=== PATIENT | male | born 1950 | race Asian ===

== ENCOUNTER 2021-08-12 09:41 | Inpatient (IN) | payer MEDICARE ==
[~2021-08-12] VITALS: Ht 162.6 cm; Wt 74.0 kg
--- NOTE | 2021-08-12 10:18 | NUR ---
PT TO ROOM FROM LOBBY. NAD.
--- NOTE | 2021-08-12 10:30 | NUR ---
CONTACT WITH PT, IV STARTED. PT ON MONITOR, RAPID AFIB PER MONITOR, PCXR COMPLETED. 70 YR OLD MALE HERE WITH C/O "TIRED, HARD TO BREATH" HAD BLOOD WORK AND COVID TESTING YESTERDAY AT [facility].
[2021-08-12] MEDS ORDERED: METF500T27 PO (10:51)
[2021-08-12] MEDS ORDERED: ROSU5TAB PO (10:51)
[2021-08-12] MEDS ORDERED: APIX5TAB PO (10:51)
[2021-08-12] MEDS ORDERED: LISI-170 PO (10:51)
[2021-08-12] MEDS ORDERED: METO25TA35 PO (10:51)
[2021-08-12 10:57] LABS: BASOPHILS % (AUTO) 0 % (0-1); EOSINOPHILS % (AUTO) 1 % (1-7); LYMPHOCYTES % (AUTO) 17 % (22-44); MEAN CORPUSCULAR HEMOGLOBIN 36.2 pg (27.5-34.5); MEAN CORPUSCULAR HGB CONC 33.9 g/dL (33.2-36.2); MEAN PLATELET VOLUME 8.7 fL (7.4-10.4); MONOCYTES % (AUTO) 10 % (2-9); NEUTROPHILS % (AUTO) 72 % (42-75); PLATELET COUNT 173 x10^3/uL (130-400); RED BLOOD COUNT 4.19 x10^6/uL (4.38-5.82); RED CELL DISTRIBUTION WIDTH 13.2 % (9.4-14.8)
[2021-08-12] MEDS ORDERED: SODIUM CHLORIDE 0.9% 1,000ML IVBOLUS ONE (11:00)
--- NOTE | 2021-08-12 11:01 | NUR ---
DR YANG AT BEDSIDE TO EVAL PT. NS BOLUS STARTED.
[2021-08-12 11:02] LABS: ALANINE AMINOTRANSFERASE 49 U/L (12-78); ALBUMIN 3.2 g/dL (3.4-5.0); ANION GAP 12 mmol/L (5-15); CALCIUM 8.8 mg/dL (8.5-10.1); CHLORIDE 97 mmol/L (98-107); CREATININE 0.87 mg/dL (0.7-1.3)
[2021-08-12 11:06] LABS: ALKALINE PHOSPHATASE 66 U/L (45-117); BILIRUBIN,TOTAL 1.1 mg/dL (0.2-1.0); TOTAL PROTEIN 7.5 g/dL (6.4-8.2); TROPONIN I < 0.015 ng/mL (0.000-0.045)
[2021-08-12] MEDS ORDERED: DILTIAZEM 125 MG in SODIUM CHLORIDE 0.9% 100 ML IV SCH (11:30)
[2021-08-12] MEDS ORDERED: DILTIAZEM 5 MG/ML, 5ML IV ONE (11:30)
[2021-08-12] MEDS ORDERED: CEFTRIAXONE 1,000 MG in DEXTROSE 5% 50 ML IVPB ONE (11:30)
--- NOTE | 2021-08-12 11:30 | NUR ---
[facility] GTT REQUESTED FROM PHARMACY
[2021-08-12] MEDS ORDERED: DILTIAZEM 5 MG/ML, 5ML ONE (11:33)
--- NOTE | 2021-08-12 11:37 | NUR ---
PT CONT TO DENY CP, "JUST HARD TO BREATH AND SOB" AFIB PER MONITOR. PT MEDICATED WITH CARDIZEM ORDERED. PT PROVIDED WITH WARM BLANKET. NS BOLUS CONT TO INFUSE WITHOUT REDNESS/SWELLING. NO OTHER NEEDS EXPRESSEDA AT THIS TIME.
--- NOTE | 2021-08-12 12:09 | NUR ---
2ND IV LINE STARTED. ONE SET OF BLOOD CULTURES DRAWN. CARDIZEM INFUSING ORDERED. HAZARDOUS WASTE REMOVER AT BEDSIDE FOR ADDITIONAL BLOOD DRAW.
[2021-08-12] MEDS ORDERED: ONDANSETRON ODT 4 MG PO PRN (13:30)
[2021-08-12] MEDS ORDERED: ACETAMINOPHEN 325 MG TABLET PO PRN (13:30)
[2021-08-12] MEDS ORDERED: OXYcodone IR 5MG TABLET PO PRN (13:30)
[2021-08-12] MEDS ORDERED: POLYETHYLENE GLYCOL 17 GM PACKET PO PRN (13:30)
[2021-08-12] MEDS ORDERED: BISACODYL 10 MG SUPP PR PRN (13:30)
[2021-08-12] MEDS ORDERED: ONDANSETRON 2MG/ML, 2ML IVPush PRN (13:30)
[2021-08-12] MEDS ORDERED: morphine SULFATE 10 MG/ML, 1ML IVPush PRN (13:30)
[2021-08-12] MEDS ORDERED: DOCUSATE 100 MG CAPSULE PO PRN (13:30)
[2021-08-12] MEDS ORDERED: hydrALAzine 20 MG/ML, 1ML IVPush PRN (13:30)
[2021-08-12] MEDS ORDERED: PROMETHAZINE 25 MG/ML, 1ML IM PRN (13:30)
--- NOTE | 2021-08-12 14:06 | NUR ---
PT CONT TO "FEEL BETTER" DECREASED SOB. AFIB PER MONITOR. CARDIZEM INFUSING AT 10MG/HR PER ORDER. PT WITH PO FLUIDS AND URINAL AT BEDSIDE. AWARE OF WAITING FOR ROOM ASSIGNMENT. NO OTHER NEEDS EXPRESSED AT THIS TIME.
--- NOTE | 2021-08-12 16:03 | NUR ---
REPORT CALLED TO MINESH PATTON. POC DISCUSSED. IV CARDIZEM CONT TO INFUSE WITHOUT REDNESS/SWELLING. PT UPDATED ON POC.
[2021-08-12] MEDS: SODIUM CHLORIDE 0.9% 1,000 ML IV SCH ×2 (16:25→22:37)
[2021-08-12 16:37] VITALS: BP 142/90
[2021-08-12] MEDS: AZITHROMYCIN 500 MG in SODIUM CHLORIDE 0.9% 250 ML IV SCH (17:55)
[2021-08-12] MEDS: INSULIN LISPRO 100 UNITS/ML, PEN SQ-INSULIN SCH ×2 (17:56→21:08)
[2021-08-12] MEDS: metFORMIN 500 MG TABLET PO SCH (18:01)
[2021-08-12] MEDS ORDERED: GUAIFENESIN 200 MG TABLET PO PRN (19:00)
[2021-08-12] MEDS ORDERED: GUAIFENESIN 100 MG/5 ML, 5ML UDC GT PRN (19:30)
[2021-08-12 20:19] VITALS: BP 122/81
[2021-08-12] MEDS: GUAIFENESIN 100 MG/5 ML, 10ML UDC PO PRN (21:08)
[2021-08-12] MEDS: ATORVASTATIN 20 MG TABLET PO SCH (21:09)
[2021-08-12] MEDS: APIXABAN 5 MG TABLET PO SCH (21:09)
[2021-08-12] MEDS: METOPROLOL TARTRATE 25 MG TAB PO SCH (21:09)
[2021-08-13 02:06] VITALS: BP 124/85
[2021-08-13] MEDS: GUAIFENESIN 100 MG/5 ML, 10ML UDC PO PRN ×3 (03:45→18:11)
[2021-08-13 05:53] LABS: BASOPHILS % (AUTO) 0 % (0-1); EOSINOPHILS % (AUTO) 2 % (1-7); LYMPHOCYTES % (AUTO) 28 % (22-44); MEAN CORPUSCULAR HEMOGLOBIN 36.5 pg (27.5-34.5); MEAN CORPUSCULAR HGB CONC 34.4 g/dL (33.2-36.2); MEAN PLATELET VOLUME 8.5 fL (7.4-10.4); MONOCYTES % (AUTO) 12 % (2-9); NEUTROPHILS % (AUTO) 58 % (42-75); PLATELET COUNT 160 x10^3/uL (130-400); RED BLOOD COUNT 3.77 x10^6/uL (4.38-5.82)
[2021-08-13 05:56] LABS: ALBUMIN 2.8 g/dL (3.4-5.0); ANION GAP 11 mmol/L (5-15); CALCIUM 8.1 mg/dL (8.5-10.1); CHLORIDE 102 mmol/L (98-107)
[2021-08-13 06:05] LABS: ALANINE AMINOTRANSFERASE 40 U/L (12-78); ALKALINE PHOSPHATASE 51 U/L (45-117); CHOL/HDL RATIO 2.8; CHOLESTEROL, TOTAL 99 mg/dL (140-239); CREATININE 0.58 mg/dL (0.7-1.3); HDL CHOL % 36 % (26-37); HDL CHOLESTEROL (DIRECT) 36 mg/dL (40-60); LDL CHOLESTEROL,CALCULATED 43 mg/dL (54-169); LDL/HDL RATIO 1.2 (0.5-3.0); TOTAL PROTEIN 6.6 g/dL (6.4-8.2); TRIGLYCERIDES 99 mg/dL (50-200); VLDL CHOLESTEROL 20 mg/dL (0-25)
[2021-08-13] MEDS: APIXABAN 5 MG TABLET PO SCH ×2 (08:31→21:28)
[2021-08-13] MEDS: metFORMIN 500 MG TABLET PO SCH ×2 (08:31→17:07)
[2021-08-13] MEDS: METOPROLOL TARTRATE 25 MG TAB PO SCH ×2 (08:31→21:28)
[2021-08-13] MEDS: INSULIN LISPRO 100 UNITS/ML, PEN SQ-INSULIN SCH ×4 (08:33→21:00)
[2021-08-13 09:08] VITALS: BP 128/82
[2021-08-13] MEDS ORDERED: MAGNESIUM SULFATE PMX 4GM/100M 100 ML IVPB ONE (10:00)
[2021-08-13] MEDS ORDERED: DILTIAZEM 125 MG in SODIUM CHLORIDE 0.9% 100 ML IV SCH ×2 (10:00→11:30)
[2021-08-13 13:05] VITALS: BP 123/83
[2021-08-13] MEDS: CEFTRIAXONE 2 GM in DEXTROSE 5% 50 ML IVPB SCH (15:01)
[2021-08-13] MEDS: AZITHROMYCIN 500 MG in SODIUM CHLORIDE 0.9% 250 ML IV SCH (18:11)
[2021-08-13] MEDS: DILTIAZEM 125 MG in SODIUM CHLORIDE 0.9% 100 ML IV SCH (18:22)
[2021-08-13] MEDS ORDERED: DILTIAZEM 5 MG/ML, 5ML ONE (18:36)
[2021-08-13] MEDS ORDERED: DILTIAZEM 5 MG/ML, 5ML IVPush ONE (19:30)
[2021-08-13 21:21] VITALS: BP 135/76
[2021-08-13] MEDS: ATORVASTATIN 20 MG TABLET PO SCH (21:28)
[2021-08-14] MEDS: DILTIAZEM 125 MG in SODIUM CHLORIDE 0.9% 100 ML IV SCH (03:28)
[2021-08-14] MEDS: GUAIFENESIN 100 MG/5 ML, 10ML UDC PO PRN ×2 (03:28→09:43)
[2021-08-14 03:33] VITALS: BP 124/82
[2021-08-14 05:56] LABS: CALCIUM 7.9 mg/dL (8.5-10.1); CHLORIDE 102 mmol/L (98-107)
[2021-08-14 06:00] LABS: ANION GAP 9 mmol/L (5-15); CREATININE 0.61 mg/dL (0.7-1.3)
[2021-08-14 08:29] VITALS: BP 123/60
[2021-08-14] MEDS: APIXABAN 5 MG TABLET PO SCH ×2 (08:52→20:52)
[2021-08-14] MEDS: INSULIN LISPRO 100 UNITS/ML, PEN SQ-INSULIN SCH ×4 (08:52→21:02)
[2021-08-14] MEDS: METOPROLOL TARTRATE 25 MG TAB PO SCH ×2 (08:52→20:52)
[2021-08-14] MEDS: metFORMIN 500 MG TABLET PO SCH ×2 (08:52→18:03)
[2021-08-14] MEDS ORDERED: MAGNESIUM SULFATE PMX 4GM/100M 100 ML IVPB ONE (09:00)
[2021-08-14 14:20] VITALS: BP 130/76
[2021-08-14] MEDS: CEFTRIAXONE 2 GM in DEXTROSE 5% 50 ML IVPB SCH (15:29)
[2021-08-14] MEDS: AZITHROMYCIN 500 MG in SODIUM CHLORIDE 0.9% 250 ML IV SCH (18:04)
[2021-08-14] MEDS ORDERED: DILTIAZEM 125 MG in SODIUM CHLORIDE 0.9% 100 ML IV SCH (18:30)
[2021-08-14 20:46] VITALS: BP 139/87
[2021-08-14] MEDS: ATORVASTATIN 20 MG TABLET PO SCH (20:52)
[2021-08-14 23:59] VITALS: BP 138/81
[2021-08-15 09:15] VITALS: BP 133/81
[2021-08-15 09:27] LABS: ANION GAP 11 mmol/L (5-15); CALCIUM 8.2 mg/dL (8.5-10.1); CHLORIDE 102 mmol/L (98-107); CREATININE 0.52 mg/dL (0.7-1.3)
[2021-08-15] MEDS: INSULIN LISPRO 100 UNITS/ML, PEN SQ-INSULIN SCH ×4 (09:27→20:10)
[2021-08-15 10:44] VITALS: BP 139/76
[2021-08-15] MEDS: metFORMIN 500 MG TABLET PO SCH ×2 (10:45→16:43)
[2021-08-15] MEDS: APIXABAN 5 MG TABLET PO SCH ×2 (10:45→20:08)
[2021-08-15] MEDS: METOPROLOL TARTRATE 25 MG TAB PO SCH ×2 (10:45→20:08)
[2021-08-15] MEDS: DILTIAZEM 30 MG TABLET PO SCH ×3 (10:45→20:08)
[2021-08-15] MEDS: GUAIFENESIN 100 MG/5 ML, 10ML UDC PO PRN ×2 (10:52→18:06)
[2021-08-15] MEDS ORDERED: CEFD300C37 PO (12:55)
[2021-08-15] MEDS ORDERED: AZIT500T PO (12:55)
[2021-08-15] MEDS ORDERED: DILT180C53 PO (12:55)
[2021-08-15 13:00] VITALS: BP 138/80
[2021-08-15] MEDS ORDERED: MAGNESIUM SULFATE PMX 2GM/50ML 50 ML IV ONE (13:00)
[2021-08-15] MEDS: CEFTRIAXONE 2 GM in DEXTROSE 5% 50 ML IVPB SCH (15:30)
[2021-08-15 16:41] VITALS: BP 119/76
[2021-08-15] MEDS: AZITHROMYCIN 500 MG in SODIUM CHLORIDE 0.9% 250 ML IV SCH (18:06)
[2021-08-15 19:56] VITALS: BP 136/72
[2021-08-15] MEDS: ATORVASTATIN 20 MG TABLET PO SCH (20:07)
[2021-08-16] MEDS: GUAIFENESIN 100 MG/5 ML, 10ML UDC PO PRN ×2 (00:14→06:20)
[2021-08-16 01:55] VITALS: BP 133/87
[2021-08-16 03:15] VITALS: BP 116/66
[2021-08-16] MEDS: DILTIAZEM 30 MG TABLET PO SCH ×2 (03:19→07:54)
[2021-08-16 06:04] LABS: BASOPHILS % (AUTO) 1 % (0-1); EOSINOPHILS % (AUTO) 3 % (1-7); LYMPHOCYTES % (AUTO) 34 % (22-44); MEAN CORPUSCULAR HEMOGLOBIN 35.8 pg (27.5-34.5); MEAN PLATELET VOLUME 8.3 fL (7.4-10.4); MONOCYTES % (AUTO) 12 % (2-9); NEUTROPHILS % (AUTO) 51 % (42-75); PLATELET COUNT 230 x10^3/uL (130-400); RED BLOOD COUNT 4.04 x10^6/uL (4.38-5.82); RED CELL DISTRIBUTION WIDTH 12.6 % (9.4-14.8)
[2021-08-16 06:07] LABS: CHLORIDE 101 mmol/L (98-107)
[2021-08-16 06:15] LABS: ANION GAP 8 mmol/L (5-15); CALCIUM 8.5 mg/dL (8.5-10.1); CREATININE 0.61 mg/dL (0.7-1.3)
[2021-08-16] MEDS: INSULIN LISPRO 100 UNITS/ML, PEN SQ-INSULIN SCH ×2 (07:00→11:33)
[2021-08-16] MEDS: METOPROLOL TARTRATE 25 MG TAB PO SCH (07:53)
[2021-08-16] MEDS: metFORMIN 500 MG TABLET PO SCH (07:53)
[2021-08-16] MEDS: APIXABAN 5 MG TABLET PO SCH (07:54)
[2021-08-16 07:56] VITALS: BP 140/76
[2021-08-16] MEDS ORDERED: FUROSEMIDE 20 MG/2 ML IV ONE (10:00)
== END 2021-08-16 12:28 | disposition home or self-care (01) | DRG 871 ==
LOC: ED 10:55 → EDIP 13:02 → 5SO 16:20
PROVIDERS: ADMIT Hospitalist; ATTEND Internal Medicine
DX: A41.9 Sepsis, unspecified organism (principal); J15.9 Unspecified bacterial pneumonia; D68.59 Other primary thrombophilia; E87.1 Hypo-osmolality and hyponatremia; E87.2 Acidosis; I48.20 Chronic atrial fibrillation, unspecified; E11.65 Type 2 diabetes mellitus with hyperglycemia; E78.5 Hyperlipidemia, unspecified; I08.1 Rheumatic disorders of both mitral and tricuspid valves; I10 Essential (primary) hypertension; I27.20 Pulmonary hypertension, unspecified; I48.0 Paroxysmal atrial fibrillation; Z20.822 Contact with and (suspected) exposure to COVID-19; Z79.01 Long term (current) use of anticoagulants; Z79.899 Other long term (current) drug therapy; Z87.891 Personal history of nicotine dependence
CPT/HCPCS: 36415; 71045; 80048; 80053; 80061; 82962; 83036; 83605; 83735; 84100; 84145; 84443; 84484; 85025; 87040; 93005; 93306; 99285; G0378; J0456; J0696; U0005; J1815; J1940; J3475; J7030; J7050; U0003